=== PATIENT | male | born 1975 | race Caucasian/White ===

== ENCOUNTER 2021-12-25 20:24 | Emergency (ER) | payer BC, OTHER ==
[~2021-12-25] VITALS: Ht 177.8 cm; Wt 97.3 kg
[~2021-12-25 20:24] MED LIST: CIPR500T94 PO; CITA10TA8 PO; HYDR-3165 PO; ONDA4TAB10 PO; TAMS0.4C97 PO
[2021-12-25 20:32] VITALS: BP 149/85
--- NOTE | 2021-12-25 20:41 | PHYS DOC ---
Past History Past Medical History: Kidney Stones (KARLEE MAYES APRN) Past Surgical History: No Surgical History (KARLEE MAYES APRN) Smoking: Cigarettes Alcohol Use: None Drug Use: Marijuana (KARLEE MAYES APRN) General Adult EDM: Chief Complaint: FLANK PAIN HPI: HPI: Patient is a 46-year-old male who presents to the emergency department for left flank pain that radiates to his left lower quadrant that started this evening. Patient rates his pain 6 out of 10 he took a hydrocodone prior to arrival. Patient has a history of kidney stones and he has had to have lithotripsy. Patient denies any nausea, vomiting, fevers. (KARLEE MAYES APRN) Review of Systems: Review of Systems: Constitutional: See HPI GI: See HPI : See HPI Musculoskeletal: See HPI (KARLEE MAYES APRN) Current Medications: Current Meds: Current Medications Medications (Trade) Dose Ordered Sig/Chay Start Time Stop Time Status Last Admin Dose Admin Fentanyl Citrate (Fentanyl 2ml Vial) 50 mcg 1X ONCE 12/25/21 20:45 12/25/21 20:46 UNV Ketorolac Tromethamine (Toradol 30mg Vial) 30 mg 1X ONCE 12/25/21 20:45 12/25/21 20:46 UNV Ondansetron HCl (Zofran) 4 mg 1X ONCE 12/25/21 20:45 12/25/21 20:46 UNV Sodium Chloride 1,000 ml @ 1,000 mls/hr 1X ONCE 12/25/21 20:45 12/25/21 21:44 UNV (KARLEE MAYES APRN) Allergies: Allergies: Allergies Coded Allergies Type Severity Reaction Last Updated Verified Sulfa (Sulfonamide Antibiotics) Allergy Severe ANAPHYLAXIS 04/06/15 Yes (KARLEE MAYES APRN) Physical Exam: PE: Constitutional: Well developed, well nourished, no acute distress, non-toxic appearance. [] HENT: Normocephalic, atraumatic, bilateral external ears normal, oropharynx moist, no oral exudates, nose normal. [] Eyes: PERRL, EOMI, conjunctiva normal, no discharge. [] Neck: Normal range of motion, no tenderness, supple, no stridor. [] Cardiovascular:Heart rate regular rhythm, no murmur [] Lungs & Thorax: Bilateral breath sounds clear to auscultation [] Abdomen: Bowel sounds normal, soft, no tenderness, no masses, no pulsatile masses. [] Skin: Warm, dry, no erythema, no rash. [] Back: No tenderness, no CVA tenderness. [] Extremities: No tenderness, no cyanosis, no clubbing, ROM intact, no edema. [] Neurologic: Alert and oriented X 3, normal motor function, normal sensory function, no focal deficits noted. [] Psychologic: Affect normal, judgement normal, mood normal. [] (KARLEE MAYES APRN) EKG: EKG: [] (KARLEE MAYES APRN) Radiology/Procedures: Radiology/Procedures: [] (KARLEE MAYES APRN) Heart Score: C/O Chest Pain: N/A Risk Factors: Risk Factors: DM, Current or recent (<one month) smoker, HTN, HLP, family history of CAD, obesity. Risk Scores: Score 0 - 3: 2.5% MACE over next 6 weeks - Discharge Home Score 4 - 6: 20.3% MACE over next 6 weeks - Admit for Clinical Observation Score 7 - 10: 72.7% MACE over next 6 weeks - Early Invasive Strategies (KARLEE MAYES APRN) Course & Med Decision Making: Course & Med Decision Making Pertinent Labs and Imaging studies reviewed. (See chart for details) Patient presents to the emergency department for left flank pain that radiates to his left lower quadrant with a history of kidney stones. Work-up in the ER consisted of blood work including lipase, urinalysis and CT imaging of abdomen and pelvis. Intend to treat patient with IV fluids, nausea and pain medication. Following his CT imaging of his abdomen and pelvis, patient passed a kidney stone. He reports resolution in his pain. He is declining blood work, urinalys is and treatment in the emergency department and would like to be discharged home. Patient's vital signs are stable. Patient vies increase his fluids and follow-up with his primary care provider. I discussed with patient all findings and diagnostic testing as well as the need to follow-up with PCP for further evaluation and treatment or return to the ER if any new or worsening symptoms. Strict return precautions were also discussed at length. Patient voiced understanding and agreement with the plan. Patient is hemodynamically stable at the time of disposition. (KARLEE MAYES APRN) Dragon Disclaimer: Dragon Disclaimer: This electronic medical record was generated, in whole or in part, using a voice recognition dictation system. (KARLEE MAYES APRN) Attending Co-Sign The patient was seen and interviewed as well as examined at the bedside. The chart was reviewed. The case was discussed. Agree with the plan of care. (ELAINE DARBY DO) Departure Departure: Impression: Primary Impression: Kidney stone Disposition: HOME / SELF CARE / HOMELESS Condition: GOOD Referrals: LUI CARMICHAEL MD (PCP) Patient Instructions: Diet for Kidney Stones, Kidney Stones, [id number] Additional Instructions: You are seen in the emergency department today for flank pain. In the emergency department, you passed a kidney stone. Please increase your fluids and you can take Tylenol and ibuprofen for pain at home. Follow-up with your primary care provider within a week. Return to the emergency department if you develop worsening of your abdominal pain, flank pain, intractable nausea or vomiting, high fevers refractory to treatment, blood in your stools or vomit. KARLEE MAYES APRN December 25, 2021 20:41 ELAINE DARBY DO December 27, 2021 06:35
[2021-12-25] MEDS ORDERED: IV NORMAL SALINE 1,000ML 1,000 ML IV ONE (21:00)
[2021-12-25] MEDS ORDERED: ONDANSETRON PF 4 MG/2 ML VIAL. IVP ONE (21:30)
[2021-12-25] MEDS ORDERED: KETOROLAC 30 MG/ML VIAL. IVP ONE (21:30)
--- NOTE | 2021-12-25 21:50 | RAD ---
EXAM: CT Abdomen and Pelvis without IV contrast CLINICAL HISTORY: Reason: flank pain / Spl. Instructions: / History: . COMPARISON: 04/08/2015 TECHNIQUE: Helical CT of the abdomen and pelvis without intravenous contrast. Axial, coronal and sagi ttal reformatted images were generated. PQRS compliance statement - One or more of the following individualized dose reduction techniques wer e utilized for this study: 1. Automated exposure control 2. Adjustment of the mA and/or kV according to patient size 3. Use of iterative reconstruction technique FINDINGS: Lack of intravenous contrast limits evaluation of solid organs, vasculature, and lymph nodes. Lower chest: Lung bases are clear. Abdomen and Pelvis: No focal liver lesion. Gallbladder is contracted. No biliary dilatation. Pancreas, spleen and adrenal glands are unremarkable. Multiple nonobstructing renal calculi are seen bilaterally. The largest is in the mid-lower pole the left kidney measuring 13 mm. No left hydronephrosis or hydroureter. There is mild left hydronephrosis and hydroureter to the level of a 5 mm calculus at the left ureter vesicular junction. Moderate colonic stool content is seen. No small or large bowel dilatation. No bowel obstruction. No abdominal or pelvic ascites. No abdominal or pelvic lymphadenopathy. Bones: No aggressive osseous lesion is seen. Multilevel degenerative changes of the spine are seen. IMPRESSION: 1. Bilateral ureteral calculus at the left ureterovesicular junction results in moderate left hydron ephrosis or hydroureter. 2. Additional bilateral nonobstructing renal calculi are seen. Electronically signed by: Stewart Rios MD (12/25/2021 9:48 PM) [facility]
== END 2021-12-25 21:35 | disposition home or self-care (01) ==
LOC: ER 20:24
DX: N13.2 Hydronephrosis with renal and ureteral calculous obstruction (principal); F17.210 Nicotine dependence, cigarettes, uncomplicated; Z87.442 Personal history of urinary calculi; Z88.2 Allergy status to sulfonamides
CPT/HCPCS: 74176; 99284